=== PATIENT | female | born 1975 | race American Indian/Alaskan Native ===

== ENCOUNTER 2021-12-03 21:42 | Emergency (ER) | payer SELFPAY ==
[2021-12-03] MEDS ORDERED: SODIUM CHLORIDE 0.9% 1000 ML 1,000 ML IV ONE (22:38)
--- NOTE | 2021-12-03 22:44 | Emergency Department Report ---
ED General Adult HPI - General Stated complaint: SUBSTANCE ABUSE/HEMATOMA PUI?: No Time Seen by Provider: 12/03/21 22:36 Source: patient, EMS - History of Present Illness Initial comments: This is a 46-year-old female [place] patient sustained a fall and hit her head. Apparently patient missed her flight to [facility]. It appears that patient may have alcohol in her system per EMS. I saw the patient while patient was on the EMS stretcher; patient appears intoxicated and slightly confused as I asked her if she knows what year it is and patient just mumbled. However patient does denies to be any discomfort anywhere. Patient does have obvious hematoma at left upper forehead. Patient appears to move all her extremities without any signs of discomfort or any other obvious deformities. Review of systems limited given that patient appears to be intoxicated. - Related Data Allergies Allergy/AdvReac Type Severity Reaction Status Date / Time No Known Allergies Allergy Unverified 12/03/21 23:17 ED Review of Systems ROS: Stated complaint: SUBSTANCE ABUSE/HEMATOMA Other details as noted in HPI Comment: Unobtainable due to pts medical conditions ED Physical Exam - General Limitations: No Limitations, Altered Mental Status (Appears intoxicated.) General appearance: alert, in no apparent distress, appears intoxicated - Head Head exam: Present: other (Patient has left upper forehead hematoma about the size of an egg. There are several superficial skin abrasion on the right upper forhead) - Eye Eye exam: Present: normal appearance, PERRL, EOMI Pupils: Present: normal accommodation - ENT ENT exam: Present: normal exam, mucous membranes moist - Neck Neck exam: Present: normal inspection, full ROM - Respiratory Respiratory exam: Present: normal lung sounds bilaterally. Absent: respiratory distress, wheezes, rales, rhonchi, stridor - Cardiovascular Cardiovascular Exam: Present: regular rate, normal rhythm, normal heart sounds - GI/Abdominal GI/Abdominal exam: Present: soft - Extremities Exam Extremities exam: Present: normal inspection, full ROM, normal capillary refill - Back Exam Back exam: Present: normal inspection, full ROM - Neurological Exam Neurological exam: Present: alert, altered, CN II-XII intact - Skin Skin exam: Present: warm, normal color ED Course Vital Signs 09/16/22 09/16/22 09/16/22 21:43 23:34 23:35 Temperature 98 F Pulse Rate 74 81 Respiratory 18 18 18 Rate Blood Pressure 129/74 O2 Sat by Pulse 100 98 98 Oximetry 12/03/21 12/04/21 12/04/21 23:45 00:01 00:15 Temperature Pulse Rate 92 H 80 82 Respiratory 17 18 18 Rate Blood Pressure 94/49 97/53 92/51 O2 Sat by Pulse 99 97 97 Oximetry 12/04/21 00:31 Temperature Pulse Rate 88 Respiratory 17 Rate Blood Pressure 92/55 O2 Sat by Pulse 97 Oximetry - Reevaluation(s) Reevaluation #1: 12/04/21 01:34 Alcohol intoxicated; pleasant. Will repeat lab at 5AM to ensure blood level at legal before d/c patient as patient doesn't have ride. 12/04/21 03:42 Nurse brought to my attention that patient is fully awake and like to go. I have seen the patient myself and patient is AOX3 and doesn't recall what happened last night but is aware that she missed her flight and knows she is in the hospital and would like to catch the next flight. Patient is steady on her gait. I have spoke to the charge nurse Shanell regarding patient's situation that she would to take uber/lyft but we do not have repeat blood alcohol yet to ensure <0.08. Charge nurse Shanell states its okay as we d/c patient w/ uber/lyft as long they are sober. I will go ahead and d/c her. 12/04/21 03:45 ED Medical Decision Making - Lab Data Result diagrams: 12/03/21 23:06 12/03/21 23:06 Critical care attestation.: If time is entered above; I have spent that time in minutes in the direct care of this critically ill patient, excluding procedure time. ED Disposition Clinical Impression: Alcohol intoxication, Ecchymosis Disposition: 01 HOME / SELF CARE / HOMELESS Is pt being admited?: No Does the pt Need Aspirin: No Condition: Stable Referrals: HENRRY GARCIA MD [Primary Care Provider] - 3-5 Days Time of Disposition: 01:34
--- NOTE | 2021-12-03 23:31 | Cat Scan Report ---
CT head/brain wo con INDICATION / CLINICAL INFORMATION: appears intoxicated s/p fall hit head. TECHNIQUE: Axial CT imaging of the brain was obtained without contrast. Coronal and sagittal reformatted imaging obtained and reviewed. All CT scans at this location are performed using CT dose reduction for KIRK Araiza by means of automated exposure control. COMPARISON: None available. FINDINGS: No intracranial hemorrhage, mass or midline shift noted. No extra-axial fluid collection or suggestio n of acute territorial infarction. The ventricular system and basilar cisterns are unremarkable. Visualized paranasal sinuses and mastoid air cells are grossly well aerated and clear. No calvarial fracture noted. Small area of soft tissue edema is seen in the left frontal scalp region. IMPRESSION: 1. No acute intracranial abnormality. 2. Small left frontal scalp ecchymosis. Signer Name: Esme Argueta MD Signed: 12/03/2021 11:27 PM Workstation Name: [id number]
[2021-12-04 00:10] LABS: Hematocrit 31.4 % (30.3-42.9); Hemoglobin 10.1 gm/dl (10.1-14.3); Mean Corpuscular HGB Conc 32 % (30-34); Mean Corpuscular Volume 71 fl (79-97); Platelet Count 122 K/mm3 (140-440); Red Blood Count 4.39 M/mm3 (3.65-5.03); Red Cell Distribution Width 19.3 % (13.2-15.2)
[2021-12-04 00:24] LABS: Alanine Aminotransferase 10 units/L (7-56); Albumin 4.3 g/dL (3.9-5); Blood Urea Nitrogen 10 mg/dL (7-17); Calcium 8.4 mg/dL (8.4-10.2); Hemolysis Index 3
[2021-12-04 00:26] LABS: BUN/Creatinine Ratio 17
[2021-12-04] MEDS ORDERED: LACTATED RINGERS 1000 ML IV SOLN IV SCH (01:45)
[2021-12-04 03:42] LABS: Color,Urine Colorless (Yellow)
[2021-12-04 03:43] LABS: Mucus,Urine 1+ /HPF; WBC,Urine < 1.0 /HPF (0.0-6.0)
[2021-12-04 04:36] VITALS: BP 98/54
[2021-12-04 05:21] LABS: Amphetamine Screen,Urine Negative; Benzodiazepines Screen,Urine Negative; Cannabinoid Screen,Urine Negative; Cocaine Screen,Urine Negative; Methadone Screen,Urine Negative; Opiate Screen,Urine Negative
== END 2021-12-04 03:55 | disposition home or self-care (01) ==
LOC: ED 21:42
DX: F10.129 Alcohol abuse with intoxication, unspecified (principal); Z79.899 Other long term (current) drug therapy
CPT/HCPCS: 36415; 70450; 80053; 80307; 81001; 83735; 85027; 96360; 99284; J7030; J7120; 80320; G0480